=== PATIENT | male | born 2000 | race Caucasian/White ===

== ENCOUNTER 2024-03-11 06:22 | Emergency (ER) | payer OTHER ==
[2024-03-11] MEDS ORDERED: METOCLOPRAMIDE 10 MG/2mL INJ ONE (07:09)
[2024-03-11] MEDS ORDERED: NA CHLORIDE 0.9% 50 ML ONE (07:09)
[2024-03-11] MEDS ORDERED: KETOROLAC 30 MG/ML INJ ONE (07:09)
[2024-03-11] MEDS ORDERED: DICYCLOMINE HCL 20 MG/2 ML AMP IM ONE (07:09)
[2024-03-11] MEDS ORDERED: NA CHLORIDE 0.9% 1,000 ML ONE (07:09)
[2024-03-11] MEDS ORDERED: DIPHENHYDRAMINE 50 MG/ML VIAL ONE (07:09)
[2024-03-11 07:35] LABS: Absolute Basophils 0.1 K/uL (0-0.5); Absolute Lymphocytes (CBC) 1.2 K/uL (0.7-4.9); Basophils % 0.6 % (0-1.3); Eosinophils % 0.4 % (0-4.4); Hematocrit 46.4 % (39.6-49.0); Hemoglobin 15.9 g/dL (13.6-17.9); Lymphocytes % 10.7 % (15.3-44.8); MCH 32.3 pg (27.0-35.0); MCHC 34.4 g/dL (32.0-36.0); MPV 8.6 fL (7.6-11.3); Monocytes % 8.7 % (3.3-12.3); Neutrophils % 79.6 % (41.7-73.7); Nucleated Red Blood Cells % 0.1 % (0-0); Platelets 219 thou/uL (152-406); RBC Red Blood Cell Count 4.93 M/uL (4.33-5.43); Red Cell Distribution Width 12.6 % (12.1-15.2)
[2024-03-11 07:44] LABS: Albumin 4.7 g/dL (3.4-5.0); Albumin/Globulin Ratio 1.4 (1.1-1.8); Anion Gap 15.9 mEq/L (5.0-15.0); Bilirubin Total 1.5 mg/dL (0.2-1.0); Globulin 3.3 g/dL (2.3-3.5); Potassium 3.9 mEq/L (3.5-5.1)
[2024-03-11 09:04] LABS: Specific Gravity > 1.030 (1.005-1.030); Sqamous Epithelial <5 /HPF (None Seen); Urine Bacteria None Seen /HPF (<20); Urine Bilirubin NEGATIVE (Negative); Urine Blood 3+ (OVER) (Negative); Urine Clarity Clear (Clear); Urine Color Yellow (Yellow); Urine Culture Reflex Order NOT NEEDED; Urine Glucose NEGATIVE (Negative); Urine Ketones 4+ (Over) (Negative); Urine Microscopic Reflex YN ORDER UMIC; Urine Mucus 2+ /HPF (None Seen); Urine Nitrite NEGATIVE (Negative); Urine Protein 1+ (Negative); Urine RBC >50 /HPF (None Seen); Urine Urobilinogen 1+ (Normal); Urine WBC <5 /HPF (<5); Urine pH 5.5 (5.0-7.0)
[2024-03-11] MEDS ORDERED: ONDANSETRON 4 MG/2 ML VIAL ONE (09:53)
--- NOTE | 2024-03-11 10:04 | RAD REPORT ---
EXAM DESCRIPTION: CTAbdomen Pelvis W Contrast - 03/11/2024 9:45 am CLINICAL HISTORY: ABD PAIN COMPARISON: <Comparisons> TECHNIQUE: CT of the abdomen and pelvis was performed. All CT scans are performed using dose optimization technique as appropriate and may include automated exposure control or mA/KV adjustment according to patient size. FINDINGS: Lower chest: No acute abnormality. Liver: No acute abnormality or suspicious lesions. Biliary: No biliary ductal dilatation. Stomach: No significant focal abnormality. Duodenum: No significant focal abnormality. Pancreas: No significant abnormality. Spleen: Small hypoattenuating lesion in the spleen measuring 11 millimeters is of doubtful significan ce. Adrenal: No suspicious lesions. Kidney/ureter: Mild to moderate left-sided hydroureteronephrosis. Too small to characterize and/or be nign appearing renal lesions are noted. Either 1 versus 2 adjacent stones measuring 4 millimeters in the left distal ureter. Retroperitoneum: No retroperitoneal adenopathy. Vascular: No aneurysm. Bowel: No significant focal abnormality. Peritoneum: No ascites or free air. Bladder: Grossly unremarkable. Reproductive: No adnexal masses. Bones: No acute fracture. Other: n/a IMPRESSION: Left-sided hydroureteronephrosis secondary to either one or two small adjacent stones me asuring 4 mm in maximum dimension just proximal to the left UVJ.
--- NOTE | 2024-03-11 11:50 | EDPHYS ---
Physician Documentation [facility] Name: Cristhian Marquez Age: 23 yrs Sex: Male : 2000 Arrival Date: 03/11/2024 Time: 06:22 Bed 17 Private MD: ED Physician Main Tran HPI: 03/11 07:32 This 23 yrs old Male presents to ER via Ambulatory with complaints of Nausea/Vomiting, rt Abdominal Pain. 07:32 Patient presents to the ED with nausea, vomiting, abdominal pain. Is been present for rt about 1 week. Patient states that he has not had a good bowel movement during this time. Patient tried some lactulose and promethazine from an urgent care to no relief. States that symptoms have worsened today. Denies other acute complaints at this time, symptoms are moderate in severity, no other aggravating or alleviating factors.. Historical: - Allergies: 07:14 No Known Allergies; vc1 - Home Meds: 07:14 None [Active]; vc1 - PMHx: 07:14 None; vc1 - PSHx: 07:14 None; vc1 - Immunization history:: Adult Immunizations up to date, Client reports receiving the 1st dose of the Covid vaccine, Flu vaccine is not up to date. - Infectious Disease History:: Denies. - Social history:: Smoking status: Patient denies any tobacco usage or history of. - Family history:: not pertinent. ROS: 07:32 Constitutional: Negative for fever, chills, and weight loss, Cardiovascular: Negative rt for chest pain, palpitations, and edema, Respiratory: Negative for shortness of breath, cough, wheezing, and pleuritic chest pain, MS/Extremity: Negative for injury and deformity, Skin: Negative for injury, rash, and discoloration, Neuro: Negative for headache, weakness, numbness, tingling, and seizure, 07:32 Abdomen/GI: Positive for abdominal pain, nausea and vomiting, Exam: 07:32 Constitutional: This is a well developed, well nourished patient who is awake, alert, rt and in no acute distress. Head/Face: Normocephalic, atraumatic. Chest/axilla: Normal chest wall appearance and motion. Nontender with no deformity. No lesions are appreciated. Cardiovascular: Regular rate and rhythm with a normal S1 and S2. No gallops, murmurs, or rubs. Normal PMI, no JVD. No pulse deficits. Respiratory: Lungs have equal breath sounds bilaterally, clear to auscultation and percussion. No rales, rhonchi or wheezes noted. No increased work of breathing, no retractions or nasal flaring. Skin: Warm, dry with normal turgor. Normal color with no rashes, no lesions, and no evidence of cellulitis. MS/ Extremity: Pulses equal, no cyanosis. Neurovascular intact. Full, normal range of motion. Neuro: Awake and alert, GCS 15, oriented to person, place, time, and situation. Cranial nerves II-XII grossly intact. Motor strength 5/5 in all extremities. Sensory grossly intact. Cerebellar exam normal. Normal gait. 07:32 Abdomen/GI: Tenderness to the left lower, left upper quadrant with mild guarding, no rebound, distention, Vital Signs: 07:08 BP 128 / 69; Pulse 81; Resp 14; Temp 98.1; Pulse Ox 100% ; Weight 62.96 kg; Height 6 vc1 ft. 2 in. ; Pain 10/10; 07:50 BP 123 / 63; Pulse 71; Resp 15; Pulse Ox 100% on R/A; ll1 08:51 BP 120 / 61; Pulse 70; Resp 15; Pulse Ox 100% ; ll1 11:31 BP 120 / 71; Pulse 81; Resp 16; Pulse Ox 100% on R/A; mb9 07:08 Body Mass Index 17.82 (62.96 kg, 187.96 cm) vc1 07:08 Pain Scale: Adult vc1 MDM: 12:44 Differential diagnosis: Kidney stone, constipation, pyelonephritis. Data reviewed: rt vital signs, nurses notes, lab test result(s), radiologic studies. Management of patient was discussed with the following: Member Of Parliament: Discussed with patient's PCP, accepting physician at [place]. I considered the following discharge prescriptions or medication management in the emergency department Medications were administered in the Emergency Department. See MAR. Independent interpretation of the following test(s) in the Emergency Department CT Scan: My interpretation is Ureteral stone seen on interpretation of CT scan images. Counseling: I had a detailed discussion with the patient and/or guardian regarding the historical points, exam findings, and any diagnostic results supporting the discharge/admit diagnosis, lab results, radiology results. Response to treatment: the patient's symptoms have markedly improved after treatment. 03/11 07:05 Order name: CBC with Diff; Complete Time: 09:05 rt 03/11 07:05 Order name: CMP; Complete Time: 09:05 rt 03/11 07:05 Order name: Lipase; Complete Time: 09:05 rt 03/11 07:05 Order name: Urinalysis w/ reflexes; Complete Time: 09:05 rt 03/11 07:05 Order name: CT Abd/Pelvis - PO and IV Contrast; Complete Time: 10:07 rt 03/11 07:05 Order name: IV Saline Lock; Complete Time: 07:06 rt 03/11 07:05 Order name: Labs collected and sent; Complete Time: 07:06 rt Administered Medications: 07:15 Drug: NS 0.9% IV 1000 ml IV at 1 bolus Per protocol; 1000 mL bolus Route: IV; Rate: 1 db bolus; Site: right antecubital; 08:50 Follow up: Response: No adverse reaction; IV Status: Completed infusion; IV Intake: ll1 1000ml 07:16 Drug: Dicyclomine IM 20 mg IM once Route: IM; Site: right deltoid; db 07:44 Follow up: Response: No adverse reaction; Pain is decreased ll1 07:18 Drug: metoCLOPramide IVP 10 mg IVP once; over 1 to 2 minutes Route: IVP; Site: right db antecubital; 07:44 Follow up: Response: No adverse reaction; Nausea is decreased ll1 07:19 Drug: TORadol - Ketorolac IVP 15 mg IVP once Route: IVP; Site: right antecubital; db 07:44 Follow up: Response: No adverse reaction; Pain is increased; RASS: Alert and Calm (0) ll1 07:19 Drug: diphenhydrAMINE IVP 25 mg IVP once Route: IVP; Site: right antecubital; db 07:44 Follow up: Response: No adverse reaction ll1 09:57 Drug: Ondansetron IVP 4 mg IVP once; over 2 minutes Route: IVP; Site: right antecubital;ll1 Disposition Summary: 03/11/24 11:49 Transfer Ordered Notes: Transfer Location: [facility] rt Reason: Specialty rt Condition: Stable rt Problem: new rt Symptoms: have improved rt Accepting Physician: bandar(03/11/24 13:33) mb9 Diagnosis - Calculus of ureter rt - Nausea with vomiting, unspecified rt - Elevated creatinine rt Discharge Instructions: - Discharge Summary Sheet ll1 Forms: - Work release form ll1 - Medication Reconciliation Form rt - SBAR form rt Signatures: Dispatcher [employer] Darin Brady RN RN ll1 Corry Carroll RN RN vc1 Arcelia Moeller RN RN db Breneman, Mary Beth RN RN mb9 Main Tran MD MD rt Koby Cross MD MD ec2 Corrections: (The following items were deleted from the chart) 06:52 06:39 Patient medically screened. ec2 ec2 13:33 11:49 bandar rt mb9
--- NOTE | 2024-03-11 11:50 | ER ---
Nurse's Notes [facility] Name: Cristhian Marquez Age: 23 yrs Sex: Male : 2000 Arrival Date: 03/11/2024 Time: 06:22 Bed 17 Private MD: Diagnosis: Calculus of ureter;Nausea with vomiting, unspecified;Elevated creatinine Presentation: 03/11 07:08 Chief complaint: Patient states: Vomiting with constipation, chills and sweats. vc1 Coronavirus screen: Client denies travel out of the [place] in the last 14 days. chills, vomiting. Client presents with at least one sign or symptom that may indicate coronavirus-19. Ebola Screen: Patient negative for fever greater than or equal to 101.5 degrees Fahrenheit, and additional compatible Ebola Virus Disease symptoms Patient denies exposure to infectious person. Patient denies travel to an Ebola-affected area in the 21 days before illness onset. No symptoms or risks identified at this time. Initial Sepsis Screen: Does the patient meet any 2 criteria? No. Patient's initial sepsis screen is negative. Does the patient have a suspected source of infection? No. Patient's initial sepsis screen is negative. Risk Assessment: Do you want to hurt yourself or someone else? Patient reports no desire to harm self or others. Onset of symptoms was March 05, 2024. Care prior to arrival: None. 07:08 Method Of Arrival: Ambulatory vc1 07:08 Acuity: PEDRO 3 vc1 Triage Assessment: 07:16 General: Appears in no apparent distress. uncomfortable, ill, slender, well groomed, vc1 Behavior is cooperative, anxious, fussy. Pain: Complains of pain in left lower quadrant Pain does not radiate. Pain currently is 10 out of 10 on a pain scale. Quality of pain is described as sharp, Noted to be crying, grimacing, moaning, Also complains of constipation, nausea. EENT: No deficits noted. No signs and/or symptoms were reported regarding the EENT system. Neuro: Level of Consciousness is awake, alert, obeys commands, Oriented to person, place, time, situation, Appropriate for age. Cardiovascular: No deficits noted. Capillary refill < 3 seconds Patient's skin is warm and dry. Respiratory: Airway is patent Respiratory effort is even, unlabored, Respiratory pattern is regular, symmetrical. GI: Abdomen is flat, non-distended, Reports lower abdominal pain, constipation, nausea, Pain is 10 out of 10 on a pain scale. vomiting. : No deficits noted. No signs and/or symptoms were reported regarding the genitourinary system. Derm: Skin is intact, is healthy with good turgor, Skin is dry, Skin is normal, Skin temperature is warm. Musculoskeletal: No deficits noted. No signs and/or symptoms reported regarding the musculoskeletal system. Historical: - Allergies: 07:14 No Known Allergies; vc1 - Home Meds: 07:14 None [Active]; vc1 - PMHx: 07:14 None; vc1 - PSHx: 07:14 None; vc1 - Immunization history:: Adult Immunizations up to date, Client reports receiving the 1st dose of the Covid vaccine, Flu vaccine is not up to date. - Infectious Disease History:: Denies. - Social history:: Smoking status: Patient denies any tobacco usage or history of. - Family history:: not pertinent. Screenin:15 [facility] ED Fall Risk Assessment (Adult) History of falling in the last 3 months, vc1 including since admission No falls in past 3 months (0 pts) Confusion or Disorientation No (0 pts) Intoxicated or Sedated No (0 pts) Impaired Gait No (0 pts) Mobility Assist Device Used No (0 pt) Altered Elimination No (0 pt) Score/Fall Risk Level 0 - 2 = Low Risk Oriented to surroundings, Maintained a safe environment, Educated pt \T\ family on fall prevention, incl call for assistance when getting out of bed. Abuse screen: Denies threats or abuse. Nutritional screening: No deficits noted. Tuberculosis screening: No symptoms or risk factors identified. Assessment: 07:15 General: Appears distressed, uncomfortable, Behavior is cooperative, appropriate for ll1 age, anxious. Pain: Complains of pain in abdomen Quality of pain is described as aching, crampy. GI: Abdomen is flat, Reports cramping, nausea, vomiting. 07:49 Reassessment: No changes from previously documented assessment. Patient and/or family ll1 updated on plan of care and expected duration. Pain level reassessed. Patient is alert, oriented x 3, equal unlabored respirations, skin warm/dry/pink. done drinking oral contrast. 08:32 Reassessment: No changes from previously documented assessment. Patient and/or family ll1 updated on plan of care and expected duration. Pain level reassessed. Patient is alert, oriented x 3, equal unlabored respirations, skin warm/dry/pink. 08:50 Reassessment: No changes from previously documented assessment. Patient and/or family ll1 updated on plan of care and expected duration. Pain level reassessed. Patient is alert, oriented x 3, equal unlabored respirations, skin warm/dry/pink. Patient states feeling better. Patient states symptoms have improved. 09:57 Reassessment: No changes from previously documented assessment. Patient and/or family ll1 updated on plan of care and expected duration. Pain level reassessed. Patient is alert, oriented x 3, equal unlabored respirations, skin warm/dry/pink. 11:31 Reassessment: No changes from previously documented assessment. Patient and/or family mb9 updated on plan of care and expected duration. Pain level reassessed. Patient is alert, oriented x 3, equal unlabored respirations, skin warm/dry/pink. 12:10 Reassessment: Attempted to call report to transferring nurse. KYA Randle states she is mb9 in a pt room and to call back in 10-15 minutes. 12:51 Reassessment: report called to transferring nurse KYA Randle. mb9 Vital Signs: 07:08 BP 128 / 69; Pulse 81; Resp 14; Temp 98.1; Pulse Ox 100% ; Weight 62.96 kg; Height 6 vc1 ft. 2 in. ; Pain 10/10; 07:50 BP 123 / 63; Pulse 71; Resp 15; Pulse Ox 100% on R/A; ll1 08:51 BP 120 / 61; Pulse 70; Resp 15; Pulse Ox 100% ; ll1 11:31 BP 120 / 71; Pulse 81; Resp 16; Pulse Ox 100% on R/A; mb9 07:08 Body Mass Index 17.82 (62.96 kg, 187.96 cm) vc1 07:08 Pain Scale: Adult vc1 ED Course: 06:24 Patient arrived in ED. ec2 06:56 Main Tran MD is Attending Physician. rt 07:10 Inserted saline lock: 22 gauge in right antecubital area, using aseptic technique. ll1 Blood collected. 07:14 Triage completed. vc1 07:15 Arm band placed on right wrist. vc1 07:16 Patient has correct armband on for positive identification. Bed in low position. Call vc1 light in reach. Pulse ox on. NIBP on. 07:18 Client placed on continuous cardiac and pulse oximetry monitoring. NIBP monitoring ll1 applied. Warm blanket given. 07:18 Provided Education on: ER procedures and process. ll1 07:18 No provider procedures requiring assistance completed. ll1 07:41 Darin Barragan, RN is Primary Nurse. ll1 07:50 Oral contrast reported to be complete. mw3 08:50 Urine collected: clean catch specimen, clear, Amount Voided: 150mL. ll1 09:47 CT Abd/Pelvis - PO and IV Contrast In Process Unspecified. EDMS 11:24 [address] [facility] to start transfer. Talked to Susanne. sp 11:39 Approval for pt: Cristhian Marquez Facility: [facility] Address: [address] [place] [address] #: [phone] Accepting MD: Dr. Veto Butler \[id number] Admin: Marjorie Esquivel \[id number] Nurse Report #: [phone] Fax # (facesheet): [phone] *IMPORTANT*: Send imaging on disk and copy of chart with the patient. 12:18 Patient admitted, IV remains in place. mb9 13:00 called [facility] for transfer talked to sp Administered Medications: 07:15 Drug: NS 0.9% IV 1000 ml IV at 1 bolus Per protocol; 1000 mL bolus Route: IV; Rate: 1 db bolus; Site: right antecubital; 08:50 Follow up: Response: No adverse reaction; IV Status: Completed infusion; IV Intake: ll1 1000ml 07:16 Drug: Dicyclomine IM 20 mg IM once Route: IM; Site: right deltoid; db 07:44 Follow up: Response: No adverse reaction; Pain is decreased ll1 07:18 Drug: metoCLOPramide IVP 10 mg IVP once; over 1 to 2 minutes Route: IVP; Site: right db antecubital; 07:44 Follow up: Response: No adverse reaction; Nausea is decreased ll1 07:19 Drug: TORadol - Ketorolac IVP 15 mg IVP once Route: IVP; Site: right antecubital; db 07:44 Follow up: Response: No adverse reaction; Pain is increased; RASS: Alert and Calm (0) ll1 07:19 Drug: diphenhydrAMINE IVP 25 mg IVP once Route: IVP; Site: right antecubital; db 07:44 Follow up: Response: No adverse reaction ll1 09:57 Drug: Ondansetron IVP 4 mg IVP once; over 2 minutes Route: IVP; Site: right antecubital;ll1 Medication: 07:15 VIS not applicable for this client. vc1 Intake: 08:50 IV: 1000ml; Total: 1000ml. ll1 Outcome: 11:49 ER care complete, transfer ordered by . rt 12:18 Transferred [place] [facility] [facility] [place]. X-rays sent w/ mb9 patient. 12:18 Condition: stable 12:18 Instructed on the need for transfer, 13:33 Patient left the ED. mb9 Signatures: Dispatcher [employer] EDLiz Cash Michelle mw3 Darin Barragan RN RN ll1 Corry Carroll RN RN vc1 Arcelia Moeller RN RN db Breneman, Mary Beth, RN RN mb9 Main Tran MD MD rt Koby Cross MD MD ec2
[2024-03-11 17:22] VITALS: BP 120/71; TEMP 98.1; O2SAT 100
== END 2024-03-11 13:33 | disposition short-term general hospital (02) ==
LOC: ER 06:22
DX: N20.1 Calculus of ureter (principal); R94.4 Abnormal results of kidney function studies
CPT/HCPCS: 85025; 81001; 36415; 83690; 80053; 74177; Q9967; J2765; J0500; J1200; J2405; J7030; 96361; 96372; 96374; 96375; 99285